=== PATIENT | female | born 1980 | race African-American/Black ===

== ENCOUNTER 2016-06-06 11:17 | Emergency (ER) | payer MEDICAID ==
[~2016-06-06] VITALS: Ht 167.6 cm; Wt 90.7 kg
[2016-06-06 11:40] VITALS: BP 121/68
[2016-06-06] MEDS ORDERED: KETOROLAC TROMETH 60MG/2ML VIAL IM ONE (12:30)
== END 2016-06-06 12:46 | disposition home or self-care (01) ==
LOC: ER 11:17
DX: M23.8X1 Other internal derangements of right knee (principal); F17.210 Nicotine dependence, cigarettes, uncomplicated
CPT/HCPCS: 96372; 99283; J1885